=== PATIENT | female | born 1995 | race Caucasian/White ===

== ENCOUNTER 2021-11-15 01:17 | Outpatient (REF) | payer BC, SELFPAY ==
[2021-11-15 01:58] LABS: COVID-19 Test Negative (Negative)
== END 2021-11-15 01:18 | disposition home or self-care (01) ==
LOC: HO.LAB 01:17
PROVIDERS: Referring Provider Internal Medicine; Visit Provider Emergency Medicine Emergency Medical Services
DX: Z20.822 Contact with and (suspected) exposure to COVID-19 (principal)
CPT/HCPCS: 87635